=== PATIENT | female | born 1950 | race Caucasian/White ===

== ENCOUNTER → 2019-09-02 17:05 | Outpatient (CLI) | payer MEDICARE, OTHER, SELFPAY ==
--- NOTE | 2019-09-02 | DI.MRI.S_ITS ---
PROCEDURE: MR KNEE RT WO CON INDICATIONS: Pain in right knee TECHNIQUE: Noncontrast sagittal PD fast spin echo and T2 fast spin echo with fat saturation, sagittal 3-D FLASH with fat saturation; coronal T1 spin echo and PD fast spin echo with fat saturation, and axial PD fast spin echo with fat saturation through the knee. COMPARISON: None. FINDINGS: Image quality: Excellent. Menisci: Oblique tear involving posterior horn of medial meniscus extending to inferior articulating surface is seen. There is no focal lateral meniscal tear. Peripheral displacement of medial meniscus is seen bony medial collateral ligament. The meniscal root ligaments appear intact. Cruciate ligaments: The anterior and posterior cruciate ligaments appear intact. Medial structures: There is low-grade MCL sprain near its femoral insertion.. The posterior oblique ligament, semimembranosus tendon insertions, oblique popliteal ligament, and meniscocapsular junction appear intact. Visualized portions of the pes anserinus tendons appear normal. No abnormal bursal fluid. Lateral structures: The lateral collateral ligament, long and short heads of the biceps femoris tendon appear intact. The popliteus tendon appears normal; the popliteofibular ligament appears intact. The posterosuperior and anteroinferior popliteomeniscal fascicles appear intact. The arcuate and fabellofibular ligaments appear intact, on either side of the lateral inferior geniculate artery. Iliotibial band appears normal. Anterior structures: The quadriceps and patellar tendons appear intact. Patellar alignment is normal. No femoral trochlear dysplasia or ventral trochlear prominence. No edema in the infrapatellar fat pad. Bones and cartilage: No bone marrow contusions or fractures. Mild tricompartmental osteoarthritis is seen more prominently medial femoral tibial compartment. Low-grade tricompartmental chondromalacia is also seen. Joint space: There is small amount of joint fluid, no gross loose body.. No Richard's cyst. Normal appearing synovial plicae are incidentally noted. IMPRESSION: 1. Mild tricompartment osteoarthritis and chondromalacia most prominent in the compartment. Small joint effusion. 2. Oblique tear involving posterior horn of medial meniscus extending to inferior articulating surface. No focal lateral meniscal tear. 3. Low-grade MCL sprain. No evidence of cruciate ligament tear. Dictated by: Austin Bland M.D. on 09/03/2019 at 9:27 Approved by: Austin Bland M.D. on 09/03/2019 at 9:53
== END ==
PROVIDERS: Family Provider Nurse Practitioner; PCP Nurse Practitioner; Visit Provider Orthopaedic Surgery
DX: M25.561 Pain in right knee (principal); S83.241A Other tear of medial meniscus, current injury, right knee, initial encounter; S83.411A Sprain of medial collateral ligament of right knee, initial encounter; M17.11 Unilateral primary osteoarthritis, right knee; M94.261 Chondromalacia, right knee; M25.461 Effusion, right knee
CPT/HCPCS: 73721

== ENCOUNTER → 2021-03-12 08:02 | Outpatient (CLI) | payer MEDICARE, OTHER, SELFPAY ==
[2021-03-12 09:28] LABS: Add Manual Diff / Slide Review NO; Basophils Absolute Auto 100 /uL (0-100); Basophils Percent Auto 1.9 % (0-2); Eosinophils Absolute Auto 200 /uL (0-450); Eosinophils Percent Auto 3.6 % (2-4); Hematocrit 41.7 % (36-46); Lymphocytes Absolute Auto 1800 /uL (1100-4500); Lymphocytes Percent Auto 28.5 % (25-40); Mean Corpuscular HGB Conc 33.6 % (30-36); Mean Corpuscular Hemoglobin 30.7 PG (26-34); Mean Corpuscular Volume 91.5 fL (80-100); Monocytes Absolute Auto 700 /uL (0-900); Neutrophils Absolute Auto 3400 /uL (1500-7000); Platelet Count 231 X10^3/uL (150-400); Red Blood Cell Count 4.55 X10^6/uL (4.0-5.2); Red Cell Distribution Width 14.7 % (11.6-14.8); White Blood Cell Count 6.2 X10^3/uL (4.5-11.0)
[2021-03-12 09:51] LABS: Alanine Aminotransferase 50 IU/L (<35); Albumin 4.1 g/dL (3.5-5.0); Albumin Globulin Ratio 1.4 (1.0-2.8); Alkaline Phosphatase 61 U/L (38-126); Aspartate Aminotransferase 48 IU/L (14-36); BUN Creatinine Ratio 21.7 (6-22); Bilirubin Total 0.5 mg/dL (0.2-1.3); Blood Urea Nitrogen 15 mg/dL (7-17); Calcium 9.4 mg/dL (8.4-10.2); Carbon Dioxide 28 mmol/L (22-32); Chloride 106 mmol/L (98-107); Cholesterol 238 mg/dL (140-199); Estimated Glomerular Filt Rate > 60.0 mL/min (>60); Glucose 99 mg/dL (80-110); HDL Cholesterol 71 mg/dL (40-60); HEMOLYSIS < 15 (0-50); LDL Cholesterol Calculated 147 mg/dL (<100); Sodium 140 mmol/L (137-145); Total Protein 7.1 g/dL (6.3-8.2); Triglycerides 98 mg/dL (35-150)
[2021-03-12 10:07] LABS: Free T3, Triiodothyronine Free 3.61 pg/mL (2.77-5.27); Free T4, Direct Thyroxine 1.41 ng/dL (0.78-2.19)
[2021-03-12 10:20] LABS: TSH w/ Reflex to FT4 1.22 uIU/mL (0.47-4.68)
== END ==
PROVIDERS: Family Provider Nurse Practitioner; PCP Family Medicine; Referring Provider Family Medicine; Visit Provider Family Medicine
DX: F41.9 Anxiety disorder, unspecified (principal); E03.9 Hypothyroidism, unspecified; M85.80 Other specified disorders of bone density and structure, unspecified site
CPT/HCPCS: 36415; 80053; 80061; 84439; 84443; 84481; 85025

== ENCOUNTER → 2021-04-25 09:50 | Outpatient (CLI) | payer MEDICARE, OTHER, SELFPAY ==
[2021-04-25 11:46] LABS: COVID19 -Nasal RAPID Negative (Negative)
== END ==
PROVIDERS: Family Provider Nurse Practitioner; PCP Family Medicine; Visit Provider Nurse Practitioner
DX: Z01.812 Encounter for preprocedural laboratory examination (principal); Z20.822 Contact with and (suspected) exposure to COVID-19
CPT/HCPCS: 87635; C9803

== ENCOUNTER 2021-04-27 10:17 | Day surgery (SDC) | payer MEDICARE, OTHER, SELFPAY ==
[2021-04-27 10:49] VITALS: BP 128/69; PULSE 57; RESP 18; TEMP 36.7; O2SAT 100; BMI 22.6
[2021-04-27] MEDS: SODIUM CHLORIDE 0.9% 1,000 ML 84 ML IV (11:00)
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
--- NOTE | 2021-04-27 11:27 | PM.OP.ENDO ---
Operative Date/Time/Diagnoses Date of procedure: 04/27/21 Pre-op diagnosis: See indication and findings Procedure & Clinicians Study performed: EGD Indications: Dysphagia Surgeon: Irene Andujar Procedure Notes Procedure in detail: After informed consent was obtained the patient was placed in left lateral decubitus position. The video upper scope placed into the oropharynx and with the patient's help swelled into the esophagus. The esophagus stomach and duodenum were carefully examined. On withdrawal, retroflexed view the GE junction was performed. The scope was removed. The patient tolerated procedure well. Blood loss none Complications none Sedation MAC Findings 1. Normal esophagus until the GE junction. 2. [id number] Schatzki's ring present. Retroflexed view shows a good deal of distance between the scope and the edge of the ring. On withdrawal, a guidewire was left in place and over the guidewire was passed a 51 [place] Savary dilator. 3. Mild streaky gastric erythema in the antrum 4. Normal duodenal bulb and sweep This was a will touch base in 3-4 weeks let me know how she is doing but I suspect that her dysphagia will be completely resolved.
[2021-04-27 11:30] VITALS: BP 111/47; PULSE 56; RESP 12; TEMP 36.5; O2SAT 97
[2021-04-27 11:35] VITALS: BP 107/56; PULSE 63; RESP 12; O2SAT 97
[2021-04-27 11:44] VITALS: BP 104/64; PULSE 55; RESP 14; O2SAT 98
[2021-04-27 12:05] VITALS: BP 124/64; PULSE 54; RESP 14; TEMP 36.2; O2SAT 97
== END 2021-04-27 12:17 | disposition home or self-care (01) ==
PROVIDERS: Family Provider Nurse Practitioner; PCP Family Medicine; Referring Provider Internal Medicine Gastroenterology; Visit Provider Internal Medicine Gastroenterology
PROC: 0DJ08ZZ Inspection of Upper Intestinal Tract, Via Natural or Artificial Opening Endoscopic (ICD-10-PCS; CPT 43235; principal; 2021-04-27 15:00)
DX: R13.10 Dysphagia, unspecified (principal); Z87.19 Personal history of other diseases of the digestive system; E03.9 Hypothyroidism, unspecified; K22.2 Esophageal obstruction
CPT/HCPCS: 43248

== ENCOUNTER → 2023-01-31 08:49 | Outpatient (CLI) | payer MEDICARE, OTHER, SELFPAY ==
[2023-01-31 10:12] LABS: Add Manual Diff / Slide Review NO; Basophils Absolute Auto 100 /uL (0-100); Basophils Percent Auto 2.1 % (0-2); Eosinophils Absolute Auto 300 /uL (0-450); Eosinophils Percent Auto 5.5 % (2-4); Hematocrit 40.8 % (36-46); Hemoglobin 13.9 g/dL (12.0-16.0); Lymphocytes Absolute Auto 2300 /uL (1100-4500); Lymphocytes Percent Auto 36.7 % (25-40); Mean Corpuscular HGB Conc 34.1 % (30-36); Mean Corpuscular Hemoglobin 30.9 PG (26-34); Mean Corpuscular Volume 90.6 fL (80-100); Monocytes Absolute Auto 700 /uL (0-900); Monocytes Percent Auto 10.9 % (3-14); Neutrophils Absolute Auto 2700 /uL (1500-7000); Neutrophils Percent Auto 44.8 % (50-75); Platelet Count 262 X10^3/uL (150-400); Red Cell Distribution Width 13.5 % (11.6-14.8); White Blood Cell Count 6.1 X10^3/uL (4.5-11.0)
[2023-01-31 10:43] LABS: Alanine Aminotransferase 25 IU/L (<35); Albumin Globulin Ratio 1.3 (1.0-2.8); Alkaline Phosphatase 62 U/L (38-126); Aspartate Aminotransferase 33 IU/L (14-36); BUN Creatinine Ratio 16.7 (6-22); Bilirubin Total 0.5 mg/dL (0.2-1.3); Blood Urea Nitrogen 13 mg/dL (7-17); Calcium 8.7 mg/dL (8.4-10.2); Carbon Dioxide 31 mmol/L (22-32); Chloride 103 mmol/L (98-107); Cholesterol 215 mg/dL (140-199); Estimated Glomerular Filt Rate > 60 mL/min (>60); Glucose 84 mg/dL (80-110); HDL Cholesterol 57 mg/dL (40-60); HEMOLYSIS < 15 (0-50); LDL Cholesterol Calculated 144 mg/dL (<100); Potassium 3.9 mmol/L (3.4-5.1); Sodium 137 mmol/L (137-145); Triglycerides 70 mg/dL (35-150)
[2023-01-31 10:44] LABS: Creatinine Urine Random 110.3 mg/dL
[2023-01-31 10:48] LABS: Microalbumin Urine Random < 0.6 mg/dL (0-1.6)
[2023-01-31 10:58] LABS: Free T3, Triiodothyronine Free 3.42 pg/mL (2.77-5.27); Free T4, Direct Thyroxine 1.41 ng/dL (0.78-2.19)
[2023-01-31 11:12] LABS: TSH w/ Reflex to FT4 5.43 uIU/mL (0.47-4.68)
== END ==
PROVIDERS: Family Provider Nurse Practitioner; PCP Family Medicine; Referring Provider Family Medicine; Visit Provider Family Medicine
DX: E03.9 Hypothyroidism, unspecified (principal); M85.80 Other specified disorders of bone density and structure, unspecified site; F41.9 Anxiety disorder, unspecified; F90.9 Attention-deficit hyperactivity disorder, unspecified type; M19.90 Unspecified osteoarthritis, unspecified site; R42 Dizziness and giddiness
CPT/HCPCS: 36415; 80053; 80061; 82043; 82306; 82570; 84439; 84443; 84481; 85025

== ENCOUNTER → 2023-11-05 14:59 | Outpatient (CLI) | payer MEDICARE, OTHER, SELFPAY ==
[2023-11-05 15:32] LABS: Add Manual Diff / Slide Review NO; Basophils Absolute Auto 100 /uL (0-100); Basophils Percent Auto 1.3 % (0-2); Eosinophils Absolute Auto 200 /uL (0-450); Eosinophils Percent Auto 1.9 % (2-4); Hematocrit 41.5 % (36-46); Lymphocytes Absolute Auto 2300 /uL (1100-4500); Lymphocytes Percent Auto 29.9 % (25-40); Mean Corpuscular HGB Conc 33.6 % (30-36); Mean Corpuscular Hemoglobin 31.1 PG (26-34); Mean Corpuscular Volume 92.4 fL (80-100); Monocytes Absolute Auto 600 /uL (0-900); Monocytes Percent Auto 7.8 % (3-14); Neutrophils Absolute Auto 4600 /uL (1500-7000); Neutrophils Percent Auto 59.1 % (50-75); Platelet Count 263 X10^3/uL (150-400); Red Cell Distribution Width 13.6 % (11.6-14.8); White Blood Cell Count 7.8 X10^3/uL (4.5-11.0)
[2023-11-05 15:53] LABS: Alanine Aminotransferase 26 IU/L (<35); Albumin 4.3 g/dL (3.5-5.0); Albumin Globulin Ratio 1.4 (1.0-2.8); Alkaline Phosphatase 65 U/L (38-126); Aspartate Aminotransferase 33 IU/L (14-36); BUN Creatinine Ratio 19.1 (6-22); Bilirubin Total 0.6 mg/dL (0.2-1.3); Blood Urea Nitrogen 13 mg/dL (7-17); Calcium 9.8 mg/dL (8.4-10.2); Carbon Dioxide 29 mmol/L (22-32); Chloride 103 mmol/L (98-107); Cholesterol 215 mg/dL (140-199); Estimated Glomerular Filt Rate > 60 mL/min (>60); Globulin 3.1 g/dL (1.7-4.1); Glucose 95 mg/dL (80-110); HDL Cholesterol 68 mg/dL (40-60); HEMOLYSIS < 15 (0-50); LDL Cholesterol Calculated 123 mg/dL (<100); Potassium 3.9 mmol/L (3.4-5.1); Sodium 140 mmol/L (137-145); Total Protein 7.4 g/dL (6.3-8.2); Triglycerides 122 mg/dL (35-150)
[2023-11-05 16:09] LABS: Free T3, Triiodothyronine Free 3.67 pg/mL (2.77-5.27); Free T4, Direct Thyroxine 1.42 ng/dL (0.78-2.19)
[2023-11-05 16:23] LABS: Thyroid Stimulating Hormone 0.853 uIU/mL (0.47-4.68)
== END ==
PROVIDERS: Family Provider Nurse Practitioner; PCP Family Medicine; Referring Provider Family Medicine; Visit Provider Family Medicine
DX: Z00.00 Encounter for general adult medical examination without abnormal findings (principal); E03.8 Other specified hypothyroidism; M19.90 Unspecified osteoarthritis, unspecified site; E06.3 Autoimmune thyroiditis; M85.80 Other specified disorders of bone density and structure, unspecified site; E03.9 Hypothyroidism, unspecified; F90.9 Attention-deficit hyperactivity disorder, unspecified type
CPT/HCPCS: 36415; 80053; 80061; 84439; 84443; 84481; 85025

== ENCOUNTER → 2023-11-07 14:46 | Outpatient (CLI) | payer MEDICARE, OTHER, SELFPAY ==
--- NOTE | 2023-11-07 14:49 | DI.RAD.S_ITS ---
Bone Density Report Name: MAHOGANY MILLS Age: 73 Sex: Female Ethnicity: White Date of : 1950 Indication: postmenopausal; screening for osteoporosis; Referring Provider: DENA DRAPER Study: Bone densitometry was performed. Exam Date: November 07, 2023 Accession number: [id number] Bone Density: Region BMD T-score Z-score Classification AP Spine(L1-L4) 0.749 -2.7 -0.5 Osteoporosis Femoral Neck (Left) 0.597 -2.3 -0.4 Osteopenia Total Hip (Left) 0.726 -1.8 -0.2 Osteopenia Femoral Neck (Right) 0.642 -1.9 0.0 Osteopenia Total Hip (Right) 0.747 -1.6 0.0 Osteopenia Total Hip Mean 0.736 -1.7 -0.1 Osteopenia World Health Organization criteria for BMD impression classify patients as: Normal (T-score at or above -1.0), Osteopenia (T-score between -1.0 and -2.5), or Osteoporosis (T-score at or below -2.5). 10-year Fracture Risk: FRAX not reported because: Some T-score for Spine Total or Hip Total or Femoral Neck at or below -2.5 Impression: The patient has osteoporosis, based on the Total Spine T-score. Discussion: INCREASED RISK OF FRACTURE. BONE DENSITY IS UNDESIRABLY LOW AT ONE OR MORE SKELETAL SITES, CONSISTENT WITH POSTMENOPAUSAL OSTEOPOROSIS. This patient's lowest T-score meets the World Health Organization's (WHO) criteria for osteoporosis at one or more sites (T-score -2.5 or below). In untreated patients, the risk of osteoporotic fracture increases approximately two-fold for each 1.0 SD decrease in T-score. Low bone density is not the only risk factor for fracture; also consider factors such as patient's age, frailty or poor health, risk of falling, risk of injury, previous osteoporotic fracture, family history of osteoporosis, cigarette smoking, low body weight, etc. Not everyone with low bone mineral density has osteoporosis; osteomalacia and other metabolic bone disorders should also be considered. Patients who have osteoporosis should be evaluated for specific diseases and conditions (secondary causes) that may cause or contribute to bone loss. The [place] Association of Clinical Endocrinologists (AACE) and National Osteoporosis Foundation (NOF) recommend pharmacologic intervention for all postmenopausal women whose T-score is in this range. The patient should follow a healthful lifestyle (good nutrition with adequate calcium and vitamin D, and appropriate weight-bearing exercise). Follow-Up: Consider a repeat BMD and Vertebral Fracture Assessment (VFA) exam in 2 years or sooner if medically necessary, to reassess this patient's status. Reported by: ZHOU DIOR MD on 11/07/2023 3:15:00 PM.
--- NOTE | 2023-11-07 14:49 | DI.MG.S_ITS ---
BILATERAL DIGITAL SCREENING MAMMOGRAM 3D/2D WITH CAD: 11/07/2023 CLINICAL: Routine screening. Family history of breast cancer. Comparison is made to exams dated: 11/09/2021 mammogram - [facility], 03/19/2019 mammogram, and 02/26/2017 mammogram - outside location. Both breasts are heterogeneously dense, which may obscure small masses (category c / 51-75% glandular tissue). Current study was also evaluated with a Computer Aided Detection (CAD) system. No significant masses, calcifications, or other findings are seen in either breast. There has been no significant interval change. IMPRESSION: NEGATIVE There is no mammographic evidence of malignancy. A 1 year screening mammogram is recommended. Based on the Tyrer Cuzick model (a risk assessment model) the patient's lifetime risk is 14.5% and her 10 year risk is 10.1%. According to the ACR, ACS, and NCCN guidelines, an annual breast MRI exam along with mammogram is recommended if the patient's lifetime risk is 20% or greater. This exam was interpreted at Station ID: [id number]. NOTE: For mammograms, a report in lay terms will be sent to the patient. Approximately 15% of breast malignancies will not be visualized mammographically. In the management of a palpable breast mass, a negative mammogram must not discourage biopsy of a clinically suspicious lesion. Electronically Signed By: Jennifer vega/kaylen:11/07/2023 15:54:28 letter sent: Normal Exam ACR BI-RADS Category 1: Negative 3341F
== END ==
LOC: MAMMO 14:48
PROVIDERS: Family Provider Nurse Practitioner; PCP Family Medicine; Referring Provider Family Medicine; Visit Provider Family Medicine
DX: M81.0 Age-related osteoporosis without current pathological fracture (principal); Z12.31 Encounter for screening mammogram for malignant neoplasm of breast; Z80.3 Family history of malignant neoplasm of breast; R92.333 Mammographic heterogeneous density, bilateral breasts
CPT/HCPCS: 77063; 77067; 77080

== ENCOUNTER → 2024-06-23 12:31 | Outpatient (CLI) | payer MEDICARE, OTHER, SELFPAY | PROVIDERS: Family Provider Nurse Practitioner; PCP Family Medicine; Visit Provider Nurse Practitioner Family | DX: L08.9 Local infection of the skin and subcutaneous tissue, unspecified (principal) | CPT/HCPCS: 87070; 87205 ==

== ENCOUNTER 2024-12-08 06:28 | Day surgery (SDC) | payer MEDICARE, OTHER, SELFPAY ==
[2024-11-27 08:10] VITALS: BMI 23.3
[2024-12-08] VITALS (12 sets, daily range): BP systolic 94–147; BP diastolic 55–79; PULSE 64–89; RESP 7–16; TEMP 36.5–37.1; O2SAT 90–98; BMI 23.7
[2024-12-08] MEDS: GENTAMICIN 290 MG in SODIUM CHLORIDE 0.9% 100 ML 107.25 MG IV (07:02)
[2024-12-08] MEDS: ACETAMINOPHEN 325 MG TABLET 975 MG PO (07:13)
[2024-12-08] MEDS: SCOPOLAMINE 1 PATCH TOP (07:13)
[2024-12-08] MEDS: LACTATED RINGERS 1,000 ML 42 ML IV ×2 (07:14→09:57)
--- NOTE | 2024-12-08 07:52 | PM.PREOP ---
Pre-operative Note Interval Note History & Physical reviewed/Exam performed by Physician: Yes Changes to H&P: No H&P completed within 30 days and has changed as indicated here:: 12/02/24 ASA Class (for procedural sedation): II
[2024-12-08] MEDS: CLINDAMYCIN 900 MG/50 ML PIGGYBACK 50 MG IV (08:12)
--- NOTE | 2024-12-08 08:39 | SUR.OPER ---
Lithotomy on padded OR bed. [place] Pad Positioner under torso. Head on pillow, arms padded and on arm boards <90 degree. Legs secured in padded yellow fins stirrups.
--- NOTE | 2024-12-08 08:43 | SUR.OPER ---
Dr. Ritter assisting with surgery. Dr. Choudhury not in room.
[2024-12-08] MEDS: BUPIVACAINE 0.5% W/ EPI (PF) 30 ML VIAL INJ (08:47)
--- NOTE | 2024-12-08 11:00 | SUR.PHASEI ---
Report called to Carla.
--- NOTE | 2024-12-08 11:13 | P.OP_ITS ---
Operative Date/Time/Diagnoses Date of procedure: 12/08/24 Time of procedure: 07:45 Pre-op diagnosis: Symptomatic rectocele, stage 2 POP Post-op diagnosis: same Procedure & Clinicians Procedure: posterior vaginal wall repair with sacrospinous ligament fixation Same procedure as scheduled: Yes Indications: symptomatic posterior vaginal wall defect Surgeon: Ruby Guerra Stone Derrickman And Rigger: Jai Ritter Anesthesia Type: General Operative Notes Findings: normal external female genitalia stage 1 anterior prolapse stage 2 posterior prolapse, broad based defect no urethral hypermobility Closure Type: primary Specimen(s): none sent Estimated Blood Loss (mL): 50 Blood products transfused: none Procedure in detail: The patient was taken to the operating room, placed on the operating table in the supine position and intubated with ETT.? The patient was then placed in the lithotomy position with her legs in Nathan stirrups.? The patient was then examined under anesthesia with the above findings, then prepped and draped in a sterile fashion.? A packer catheter was placed.? Time out was performed. Attention was then turned to the posterior vaginal wall and retractors were placed anteriorly. The existing perineal scar from prior episiotomy repair was infiltrated with 5cc 0.5% marcaine with epinephrine and incised sharply with the knife. With the natural genital hiatus restored significantly improved visualization and access to the posterior vaginal wall was acheived. The posterior vaginal wall was then infiltrated its full length with 0.5% Marcaine with epinephrine and a longitudinal incision of the posterior vaginal wall was accomplished with Metzenbaum scissors after undermining the vaginal mucosa. The vaginal mucosa was then dissected off underlying rectovaginal tissues and preparations made for sacral spinous ligament fixation. The perirectal space on the right side was dissected bluntly and the right sacral spinous ligament identified by palpation. A Capio device with 0 PDS was then placed through the mid 3rd of the sacrospinous ligament on the right side x2 and the free needle end of the Capio was used to place a lexy stitch x2 through the cervical stroma on the right side near the apex. The same dissection was then carried out on the contralateral side to identify the lateral margins of the posterior defect, confirmed with digital rectal exam; gloves changed. The rectovaginal and pararectal tissues were then plicated using interrupted 0-0 vicryl suture the full length of the vagina. The redundant vaginal mucosa was then removed with Metzenbaum scissors and the posterior vaginal wall mucosa was then closed with 2-0 Vicryl in interrupted fashion. The SSLF lexy sutures were then tied down with noted excellent apical support. The repair was then carried down to the introitus and perineoplasty performed with 2-0 Vicryl in the usual manner. Excellent support of both the vaginal apex and posterior vaginal lundberg was noted and the genital hiatus was restored to normal size/accomodation of 2 fingerbreadths with performance of the perineoplasty. The vaginal hemostasis was excellent, and a moistened vaginal packing was placed in the vagina to assist with hemostasis. A final digital rectal exam was performed with noted absence of suture palpable within the rectum, excellent rectovaginal support. All counts correct x2. The patient was awakened from anesthesia, extubated and transferred to PACU in stable condition without complication. Complications: none Post-operative Condition: stable Disposition: PACU Plan for aftercare: transfer to acute care pending recovery from anesthesia, anticipate dc to home POD1 pending clinical course
--- NOTE | 2024-12-08 11:18 | SUR.PHASEI ---
Patient transferred to the floor with her belongings bag and glasses. Report given to Carla. VS stable. Donna patent.
[2024-12-08] MEDS: KETOROLAC 30 MG/ML VIAL IV ×2 (16:05→22:07)
[2024-12-08] MEDS: ACETAMINOPHEN 325 MG TABLET 650 MG PO ×2 (18:20→23:37)
[2024-12-09] VITALS: BP 98/52; PULSE 61; RESP 12; TEMP 36.4; O2SAT 95
[2024-12-09] MEDS: KETOROLAC 30 MG/ML VIAL IV (03:52)
[2024-12-09] MEDS: ACETAMINOPHEN 325 MG TABLET 650 MG PO ×2 (04:57→10:50)
[2024-12-09 05:56] LABS: Add Manual Diff / Slide Review NO; Basophils Absolute Auto 100 /uL (0-100); Basophils Percent Auto 0.4 % (0-2); Eosinophils Absolute Auto 0 /uL (0-450); Hematocrit 36.9 % (36-46); Hemoglobin 12.4 g/dL (12.0-16.0); Lymphocytes Absolute Auto 2000 /uL (1100-4500); Lymphocytes Percent Auto 12.5 % (25-40); Mean Corpuscular HGB Conc 33.5 % (30-36); Mean Corpuscular Hemoglobin 30.8 PG (26-34); Mean Corpuscular Volume 91.9 fL (80-100); Monocytes Absolute Auto 1400 /uL (0-900); Neutrophils Absolute Auto 12500 /uL (1500-7000); Neutrophils Percent Auto 78.1 % (50-75); Platelet Count 210 X10^3/uL (150-400); Red Blood Cell Count 4.02 X10^6/uL (4.0-5.2); Red Cell Distribution Width 12.9 % (11.6-14.8)
[2024-12-09] MEDS: LEVOTHYROXINE 75 MCG TABLET PO (06:12)
--- NOTE | 2024-12-09 06:24 | PC.NURSE ---
Pt OOB ambulated to sink and back SBA, pt tolerated well. 0/10 pain, just feels pressure and discomfort. Pt sleeping comfortably, plan of care continues.
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
[2024-12-09 08:20] VITALS: BP 109/61; PULSE 64; RESP 14; TEMP 36.6; O2SAT 96
--- NOTE | 2024-12-09 08:38 | CM.DANOTE ---
Initial DCP Assessment Visit Note Reviewed EMR and team rounds for patient's medical status and updates. Met with patient and her spouse at bedside to introduce self and role. Patient was found to be alert and oriented. Patient was calm and cooperative during our conversation. Patient lives in her own home with her spouse. She is fully independent with self care and ADLs. She walks unassisted at baseline. She proactively rented a front wheeled walker in preparation for this surgery. Patient's spouse will provide transportation from the hospital. Plan is to return back home after leaving the hospital. Payor: Medicare PCP: Dr Downey Patient is a 74 year old female who presented who is at POD #1 for vaginal prolapse surgery. Patient appeared to be doing well this morning. She was eating breakfast when we spoke. She has a discharge order in place. Plan is for patient's to get a ride home from her spouse today. No discharge needs anticipated. DCP will continue to monitor for any evolving needs in relation to discharging home. Discharge Planning/Care Management CM Discharge Assessment Start: 12/09/24 08:34 Freq: Status: Active Protocol: Document 12/09/24 08:34 [email or web address] (Rec: 12/09/24 08:37 RJ [id number]) Discharge Planning Assessment Assigned Senior Boiler Operator Carmelo Diaz RN DPOA/Assigned Designee Name Cristiano Alegre (spouse) Contact Information [phone] Advance Directives? Yes Advance Directives on File Yes: Patient reported that they have been dropped off with RN to be scanned History Provided By Patient,Significant Other, Medical Record Expected Length of Stay 2 Has Patient been admitted in last 30 No days? Prior Living Arrangements House Household Members spouse Type of transporation used prior to Relies on Others admit Comment Patient's spouse transports her. Independent with ADL's Yes Is patient alert and oriented? Yes Comment Patient's spouse will help with all care needs and ADLs as needed. Caregiver for Another No Comment None DME Already Rented / Owned FWW / Walker Barriers to Discharge No Discharge Plan Home Transportation Arrangement Patient's spouse will transport. Referrals Initiated None needed Whiteboard Updated in Patient Room with Yes name and ext. # of Senior Boiler Operator Review Status In Process Please Provide Date Initial DC 12/09/24 Assessment Was Performed Pre-Anesthesia Assessment Start: 11/27/24 08:10 Freq: Status: Active Protocol: Document 11/27/24 08:10 LB (Rec: 11/27/24 08:36 LB [id number]) Pre-Anesthesia Assessment PAC Comment 11/27/24 Chart review. Patient Information Reviewed Via Chart Review Comment No recent testing. 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 No Hx Sleep Apnea No Currently Taking a Beta Sagrario No Anti-Coagulant Therapy No Cardiac Testing No Hx Pacemaker/ICD No Urinary Catheter Present No Hx Urinary Self Catheterization No Diabetes No Patient No Lactating No Presence of External or Internal Medical No Devices Marital Status Lives With spouse Patient Discharge Plan Description Return Home Emergency Contact Name Cristiano Alegre - Emergency Contact Advance Directives? Yes Advance Directives on File No
[2024-12-09] MEDS: IBUPROFEN 600 MG TABLET PO (09:09)
== END 2024-12-09 11:54 | disposition home or self-care (01) ==
LOC: OR 06:30 → AC 11:05
PROVIDERS: Family Provider Nurse Practitioner; PCP Family Medicine; Referring Provider Obstetrics & Gynecology; Visit Provider Obstetrics & Gynecology
PROC: (CPT 57282; principal; 2024-12-08 07:45)
DX: N81.2 Incomplete uterovaginal prolapse (principal); F43.10 Post-traumatic stress disorder, unspecified
CPT/HCPCS: 57282; 57250; 36415; 85025; J0330; J1100; J1171; J1885; J2405; J2704; J3010

== ENCOUNTER 2024-12-10 12:44 | Emergency (ER) | payer MEDICARE, OTHER, SELFPAY ==
[2024-12-08 11:12] VITALS: BMI 23.7
[2024-12-10] VITALS (11 sets, daily range): BP systolic 122–185; BP diastolic 69–91; PULSE 60–73; RESP 15–24; TEMP 36.6; O2SAT 96–100; BMI 23.8
--- NOTE | 2024-12-10 13:35 | PC.NURSE ---
Patient's has questions about and pain management. Wants to get her pain pills and have her take. This RN talks with patient and family. Pt denies pain at this time, but has concerns for wanting to stay on top of it. Explained to the patient and that since she is here for difficultly swallowing please do not take oral pain meds at this time. They understood the risks and verbalized understanding. She is A&O and maintaining her own airway and secretions. Told to call back if any pain is developing.
[2024-12-10 14:24] LABS: Add Manual Diff / Slide Review NO; Basophils Absolute Auto 100 /uL (0-100); Basophils Percent Auto 0.9 % (0-2); Eosinophils Absolute Auto 200 /uL (0-450); Eosinophils Percent Auto 1.7 % (2-4); Hematocrit 39.5 % (36-46); Hemoglobin 13.3 g/dL (12.0-16.0); Lymphocytes Absolute Auto 2100 /uL (1100-4500); Lymphocytes Percent Auto 20.4 % (25-40); Mean Corpuscular HGB Conc 33.8 % (30-36); Mean Corpuscular Volume 91.6 fL (80-100); Monocytes Absolute Auto 800 /uL (0-900); Monocytes Percent Auto 7.8 % (3-14); Neutrophils Absolute Auto 7100 /uL (1500-7000); Neutrophils Percent Auto 69.2 % (50-75); Platelet Count 242 X10^3/uL (150-400); Red Blood Cell Count 4.31 X10^6/uL (4.0-5.2); Red Cell Distribution Width 13.2 % (11.6-14.8); White Blood Cell Count 10.2 X10^3/uL (4.5-11.0)
[2024-12-10 14:26] LABS: Alanine Aminotransferase 27 IU/L (<35); Albumin 4.2 g/dL (3.5-5.0); Albumin Globulin Ratio 1.4 (1.0-2.8); Alkaline Phosphatase 48 U/L (38-126); Aspartate Aminotransferase 36 IU/L (14-36); BUN Creatinine Ratio 16.9 (6-22); Bilirubin Total 0.8 mg/dL (0.2-1.3); Blood Urea Nitrogen 14 mg/dL (7-17); Calcium 9.5 mg/dL (8.4-10.2); Carbon Dioxide 23 mmol/L (22-32); Chloride 104 mmol/L (98-107); Estimated Glomerular Filt Rate > 60 mL/min (>60); Glucose 101 mg/dL (80-110); HEMOLYSIS 24 (0-50); Potassium 4.1 mmol/L (3.4-5.1); Sodium 136 mmol/L (137-145); Total Protein 7.2 g/dL (6.3-8.2)
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
--- NOTE | 2024-12-10 14:47 | PC.NURSE ---
Pt reports recent surgery on Sunday and being intubated. Pt was hoarse and able to swallow pills until this morning at 0800 while taking tylenol she feels like one of them got stuck. Is able to maintain her own airway and secretions. Does not appear in any acute respiratory distress. Talking in full sentences. LS clear and equal throughout all bilateral anterior toscano and upper airway. Pt states when she tries to drink water she starts foaming and isn't able to get it down.
[2024-12-10] MEDS: SODIUM CHLORIDE 0.9% 1,000 ML 1000 ML IV (15:02)
[2024-12-10] MEDS: LORazepam 2 MG/ML INJ 0.5 MG IV (15:03)
--- NOTE | 2024-12-10 15:07 | PC.NURSE ---
Patient being given 10 mg diltiazem for esophageal spasms. This RN places patient on cardiac med and rechecks vitals prior to administration.
[2024-12-10] MEDS: dilTIAZem 25 MG/5 ML SDV 10 MG IV (15:18)
--- NOTE | 2024-12-10 16:28 | PC.NURSE ---
Tried sips of water and patient began to spit up a little bit and belch. Provider Alejandra made aware.
[2024-12-10] MEDS: LORazepam 2 MG/ML INJ 1 MG IV (16:48)
== END 2024-12-10 17:58 | disposition home or self-care (01) ==
PROVIDERS: Emergency Provider Emergency Medicine; Family Provider Nurse Practitioner; PCP Family Medicine
DX: K22.2 Esophageal obstruction (principal)
CPT/HCPCS: 36415; 80053; 85025; 96361; 96374; 96375; 96376; 99284; J2060

== ENCOUNTER → 2024-12-31 13:44 | Outpatient (CLI) | payer MEDICARE, OTHER, SELFPAY ==
[2024-12-08 11:12] VITALS: BMI 23.7
--- NOTE | 2024-12-31 13:45 | DI.ECHO.S_ITS ---
[facility] : : [address] : : [place] : : [id number] : : Phone: [phone] Echocardiogram Report + + :Name: MAHOGANY MILLS Study Date: 12/31/2024 Height: 62 in : :Hospital ReadingLocation: Weight: 130 lb : : Gender: Female BSA: 1.6 m2 : :: 1950 Age: 74 yrs BP: 151/85 mmHg: :Reason For Study: DOMINIC, AORTIC ANEURYSM ASSESSMENT : :Ordering Physician: BARON : :DENA Performed By: Shea Frye : :Referring: DENA DRAPER : + + Interpretation Summary The ejection fraction is estimated to be 60-65%. Diastolic parameters suggest probable normal left ventricular diastolic function and normal filling pressures. The right ventricle is normal in size and function. There is mild to moderate mitral regurgitation. Pulmonary artery pressures cannot be estimated because of the lack of a measurable TR jet velocity but the IVC suggests a CVP of around 3 mmHg. The visualized portions of the ascending aorta, arch and descending aorta appear normal in diameter. Procedure: A two-dimensional transthoracic echocardiogram with color flow and Doppler was performed. The study quality was technically adequate. There is no prior echocardiogram noted for this patient. The patient was in sinus rhythm with heart rates between 60-74 bpm during the exam. Left Ventricle: The left ventricle is normal in size and wall thickness. The ejection fraction is estimated to be 60-65%. Diastolic parameters suggest probable normal left ventricular diastolic function and normal filling pressures. Right Ventricle: The right ventricle is normal in size and function. Atria: The left atrial size is normal. Right atrial size is normal. There is no Doppler evidence for an interatrial shunt. Mitral Valve: The mitral valve leaflets appear to open well. There is a flat closure plane of the the mitral valve leaflets. There is mild to moderate mitral regurgitation. Aortic Valve: The aortic valve is trileaflet. The aortic valve opens well. There is no aortic valve stenosis. No aortic regurgitation is present. Tricuspid Valve: The tricuspid valve leaflets are thin and pliable. There is trace tricuspid regurgitation. Pulmonary artery pressures cannot be estimated because of the lack of a measurable TR jet velocity but the IVC suggests a CVP of around 3 mmHg. Pulmonic Valve: The pulmonic valve leaflets are thin and pliable; valve motion is normal. There is mild pulmonic regurgitation. Great Vessels: The aortic root is normal size. The ascending aorta is at the upper limits of normal in size. The IVC is of normal diameter and collapses greater than 50% with a sniff. This suggests a low right atrial pressure of 3 mm Hg. Pericardium/ Pleura There is no pericardial effusion. There is no pleural effusion. MMode/2D Measurements & Calculations LVIDd: 4.0 cm LVOT diam: 2.0 cm LVIDs: 2.6 cm Ao root diam: 2.7 cm FS: 33.8 % asc Aorta Diam: 3.5 cm IVSd: 0.72 cm Ao Arch Diam (Prox Trans): 3.1 cm LVPWd: 0.75 cm LV givens. diameter/BSA (cm/m^2): 2.5 LV sys. diameter/BSA (cm/m^2): 1.7 LA A2 area: 18.7 cm2 RA long axis: 4.9 cm LA A4 area: 16.5 cm2 RA area: 15.4 cm2 LA length (vol): 4.9 cm RA vol: 41.6 ml LA vol: 52.9 ml RA : 26.1 ml/m2 LA vol index: 33.2 ml/m2 IVC diam: 1.3 cm RVD1 (basal): 3.5 cm RVD2 (mid): 2.8 cm TAPSE: 1.8 cm Doppler Measurements & Calculations Ao V2 max: 139.7 cm/sec LVOT Max Marcin: 125.9 cm/sec Ao V2 mean: 87.6 cm/sec LV V1 max P.3 mmHg Ao max P.8 mmHg LV V1 VTI: 26.6 cm Ao mean P.6 mmHg VIKTOR(I,D): 2.9 cm2 Ao V2 VTI: 27.5 cm VIKTOR(V,D): 2.7 cm2 sev ratio: 0.97 VIKTOR indexed to BSA (cm^2/m^2): 1.8 MV E max marcin: 79.7 cm/sec TR max marcin: 222.3 cm/sec MV A max marcin: 97.7 cm/sec TR max P.8 mmHg MV E/A: 0.82 PA V2 max: 88.8 cm/sec Med Peak E' Marcin: 7.5 cm/sec PA V2 mean: 63.2 cm/sec E/E' med: 10.6 PA mean P.7 mmHg Lat Peak E' Marcin: 8.7 cm/sec PA pr(Accel): 25.1 mmHg E/E' lat: 9.1 E/e' average: 9.9 MV dec time: 0.20 sec SV(LVOT): 79.7 ml Reading Physician:03:37 PM
== END ==
PROVIDERS: Family Provider Nurse Practitioner; PCP Family Medicine; Referring Provider Family Medicine; Visit Provider Family Medicine
DX: Q79.60 Ehlers-Danlos syndrome, unspecified (principal); I34.1 Nonrheumatic mitral (valve) prolapse; I37.1 Nonrheumatic pulmonary valve insufficiency
CPT/HCPCS: 93306

== ENCOUNTER → 2025-01-12 14:10 | Outpatient (CLI) | payer MEDICARE, OTHER, SELFPAY ==
[2024-12-08 11:12] VITALS: BMI 23.7
--- NOTE | 2025-01-12 14:12 | DI.US.S_ITS ---
PROCEDURE: US SOFT TISSUE HEAD AND NECK INDICATIONS: LEFT SUBMANDIBULAR LUMP TECHNIQUE: Real-time scanning was performed of the neck region of interest, with image documentation. COMPARISON: None. FINDINGS/IMPRESSION: No significant sonographic abnormality is seen in the left neck at the area of concern. Approved by: Celestine Stockton M.D. on 01/12/2025 at 16:57
--- NOTE | 2025-01-12 14:12 | DI.RAD.S_ITS ---
PROCEDURE: FL BARIUM SWALLOW INDICATIONS: Swallowing difficulty worse last 4 days COMPARISON: None. FINDINGS: Function: There is mild weakening of the esophageal peristalsis, resulting in trace residual contrast within the esophagus, which elicits a tertiary contraction. There was elicited gastroesophageal reflux. Morphology: Normal mucosal morphology. Single contrast views show no esophageal strictures, extrinsic mass effects, or diverticula. Limited images of the stomach demonstrate normal appearance. IMPRESSION: [id number] esophageal dysmotility with associated gastroesophageal reflux. Dictated by: Mateusz Ryan M.D. on 01/12/2025 at 15:54 Approved by: Mateusz Ryan M.D. on 01/12/2025 at 15:55
== END ==
PROVIDERS: Family Provider Family Medicine; PCP Family Medicine; Referring Provider Family Medicine; Visit Provider Family Medicine
DX: K22.2 Esophageal obstruction (principal); R13.10 Dysphagia, unspecified; Q79.60 Ehlers-Danlos syndrome, unspecified; R22.1 Localized swelling, mass and lump, neck; K22.4 Dyskinesia of esophagus; K21.9 Gastro-esophageal reflux disease without esophagitis
CPT/HCPCS: 74220; 76536

== ENCOUNTER → 2025-01-14 18:35 | Outpatient (ROUT) | payer MEDICARE, OTHER, SELFPAY ==
[2024-12-08 11:12] VITALS: BMI 23.7
[2025-01-14 18:44] LABS: Appearance Urine UA CLEAR; Bilirubin Urine UA NEGATIVE (NEGATIVE); Color Urine UA YELLOW; Glucose Urine UA NEGATIVE (Negative); Ketones Urine UA NEGATIVE (NEGATIVE); Leukocyte Esterase Urine UA NEGATIVE (NEGATIVE); Nitrite Urine UA NEGATIVE (Negative); Occult Blood Urine UA NEGATIVE (Negative); Protein Urine UA NEGATIVE (Negative); Specific Gravity Urine UA <=1.005 (1.000-1.035); Urobilinogen Urine UA 0.2 E.U./dL (0.2)
[2025-01-14 18:51] LABS: Bacteria Urine Occasional (0-1); Culture Indicated Urine Cult Not Indicated; RBC Urine None Seen (0-5/HPF); Squamous Epithelial Cell Urine 0-1 /HPF (0-5/HPF); Urine Volume 10mL (spun); WBC Urine 0-1/HPF (0-5/HPF)
== END ==
PROVIDERS: Obstetrics & Gynecology; Family Provider Family Medicine; PCP Family Medicine; Visit Provider Family Medicine
DX: R39.89 Other symptoms and signs involving the genitourinary system (principal); R39.15 Urgency of urination
CPT/HCPCS: 81001

== ENCOUNTER 2025-02-04 08:12 | Day surgery (SDC) | payer MEDICARE, OTHER, SELFPAY ==
[2024-12-08 11:12] VITALS: BMI 23.7
[2025-02-04 08:55] VITALS: BP 159/81; PULSE 78; RESP 16; TEMP 36.8; O2SAT 98
[2025-02-04] MEDS: LACTATED RINGERS 1,000 ML 42 ML IV (09:00)
--- NOTE | 2025-02-04 09:21 | P.OP.ENDO_ITS ---
Operative Date/Time/Diagnoses Date of procedure: 02/04/25 Time of procedure: 09:44 Pre-op diagnosis: See indication and findings Post-op diagnosis: same Procedure & Clinicians Study performed: EGD with probable esophageal dilation Same procedure as scheduled: Yes Indications: Lower substernal dysphagia recurrent Surgeon: Irene Andujar Procedure Notes Procedure in detail: After informed consent was obtained the patient was placed in left lateral decubitus position. The video upper scope was placed into the oropharynx and with the patient's help swallowed into the esophagus. The esophagus stomach and duodenal were carefully examined. On withdrawal retroflexed view the GE junction was performed. The scope was removed. The patient tolerated procedure well. Blood loss none Complications none Sedation mac Findings 1. GE junction with a mild Schatzki's ring best seen on retroflexed view. At the end of the procedure guidewire was passed and over the guidewire a 51 [place] Savary dilator without difficulty. 2. Normal stomach 3. Normal duodenal bulb and sweep This will hopefully help patient has much as the last 1 did which was a good 5 years ago. She will be in touch should she still have issues
[2025-02-04 09:48] VITALS: BP 105/61; PULSE 69; RESP 12; TEMP 36.8; O2SAT 98
[2025-02-04 09:58] VITALS: BP 123/65; PULSE 63; RESP 15; TEMP 36.8; O2SAT 98
--- NOTE | 2025-02-04 10:40 | SUR.PHASEII ---
Patient stated she had difficulty swallowing water, though no coughing was noted. Dr. Andujar notified and MD spoke with patient.
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
== END 2025-02-04 10:31 | disposition home or self-care (01) ==
PROVIDERS: Family Provider Family Medicine; PCP Family Medicine; Referring Provider Internal Medicine Gastroenterology; Visit Provider Internal Medicine Gastroenterology
PROC: 0DJ08ZZ Inspection of Upper Intestinal Tract, Via Natural or Artificial Opening Endoscopic (ICD-10-PCS; CPT 43248; principal; 2025-02-04 09:30)
DX: K22.2 Esophageal obstruction (principal); R13.10 Dysphagia, unspecified; E03.9 Hypothyroidism, unspecified; F43.10 Post-traumatic stress disorder, unspecified; F90.9 Attention-deficit hyperactivity disorder, unspecified type; F41.9 Anxiety disorder, unspecified; Z85.828 Personal history of other malignant neoplasm of skin
CPT/HCPCS: 43248; J2704

== ENCOUNTER 2025-03-09 13:00 | Outpatient (RCR) | payer MEDICARE, OTHER, SELFPAY ==
[2024-12-08 11:12] VITALS: BMI 23.7
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
== END 2025-04-27 10:58 | disposition home or self-care (01) ==
LOC: PHYS 13:00
PROVIDERS: Family Provider Family Medicine; PCP Family Medicine; Referring Provider Obstetrics & Gynecology; Visit Provider Obstetrics & Gynecology
DX: M62.89 Other specified disorders of muscle (principal)
CPT/HCPCS: 97110; 97140; 97162; 97530; 97535

== ENCOUNTER 2025-04-23 14:55 | Emergency (ER) | payer MEDICARE, OTHER, SELFPAY ==
[2024-12-08 11:12] VITALS: BMI 23.7
[2025-04-23 14:59] VITALS: BP 186/81; PULSE 82; RESP 14; TEMP 36.6; O2SAT 100; BMI 23.0
[2025-04-23 16:02] VITALS: BP 188/126; PULSE 84; RESP 16; O2SAT 98
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
[2025-04-23 16:30] VITALS: BP 209/93; PULSE 71; RESP 14; O2SAT 97
[2025-04-23 17:00] VITALS: BP 175/78; PULSE 68; O2SAT 97
[2025-04-23 17:30] VITALS: BP 163/95; PULSE 80; O2SAT 97
== END 2025-04-23 18:19 | disposition home or self-care (01) ==
PROVIDERS: Emergency Provider Physician Assistant; PCP Family Medicine
DX: T83.9XXA Unspecified complication of genitourinary prosthetic device, implant and graft, initial encounter (principal); N81.2 Incomplete uterovaginal prolapse; Y76.2 Prosthetic and other implants, materials and accessory obstetric and gynecological devices associated with adverse incidents
CPT/HCPCS: 81003; 99282